=== PATIENT | male | born 1935 | race Caucasian/White ===

== ENCOUNTER → 2023-04-25 13:17 | Outpatient (REF) | payer MEDICARE, OTHER, SELFPAY | LOC: MRI 13:17 | PROVIDERS: ATTENDING PHYSICIAN Psychiatry & Neurology Neurology; FAMILY PHYSICIAN Radiology Diagnostic Radiology | DX: C71.9 Malignant neoplasm of brain, unspecified (principal) | CPT/HCPCS: 70553; 71046; A9585 ==